=== PATIENT | female | born 1960 | race African-American/Black ===

== ENCOUNTER 2018-01-27 11:11 | Emergency (ER) | payer OTHER ==
[~2018-01-27] VITALS: Ht 154.9 cm; Wt 79.4 kg
== END 2018-01-27 11:50 | disposition home or self-care (01) ==
LOC: FSED 11:11
DX: S00.83XA Contusion of other part of head, initial encounter (principal); W22.8XXA Striking against or struck by other objects, initial encounter; Y99.0 Civilian activity done for income or pay; I10 Essential (primary) hypertension
CPT/HCPCS: 99282

== ENCOUNTER 2019-04-06 11:38 | Emergency (ER) | payer OTHER ==
[~2019-04-06] VITALS: Ht 154.9 cm; Wt 79.4 kg
--- NOTE | 2019-04-06 12:56 | Diagnostic Imaging Report ---
EXAM: SHOULDER 2+VW RT - HOPD DATE: 04/06/2019 12:00 AM INDICATION: Right shoulder pain COMPARISON: None FINDINGS: Although the acromioclavicular joint does not appear widened, there is is minimal elevation of the lateral aspect of the clavicle in comparison to the acromium. The osseous structures are otherwise unremarkable without evidence of acute fracture or dislocation. The glenohumeral joint is within normal limits. The soft tissues are unremarkable without evidence for radiopaque foreign body. The visualized right hemithorax is unremarkable. IMPRESSION: Minimal elevation of the lateral aspect of the clavicle in comparison to the acromium which can be seen in the setting of acromioclavicular injury of unknown chronicity. No other acute osseous abnormality identified within the right shoulder. Signed by: Dr. Mikal Willard MD on 04/06/2019 12:52 PM
[2019-04-06 13:22] VITALS: BP 157/82
--- OUTSIDE RECORDS SUMMARY | 2019-04-15 10:57 | XMS REPORT ---
[facility] Address Unknown Phone Unavailable Care Team Providers Care Food Mixer Name Role Phone SHAHID HEART Unavailable Unavailable Problems This patient has no known problems. Allergies, Adverse Reactions, Alerts This patient has no known allergies or adverse reactions. Medications This patient has no known medications. Results Test Description Test Time Test Comments Text Results Atomic Results Result Comments SHOULDER 2+VW RT - HOPD 2019-04-06 12:48:00 [place] [address] Patient Name: WILMAN MITCHELL MR #: [id number] : 1960 Age/Sex: 59/F Req #: [id number] [facility] Physician: Ordered by: SHAHID HEART MD Report #: [id number] [facility] Room/Bed: Procedure: [id number] HOPD/SHOULDER 2+VW RT - HOPD Exam Date: 04/06/19 Exam Time: 1210 REPORT STATUS: Signed EXAM: SHOULDER 2+VW RT - HOPD DATE: 04/06/2019 12:00 AM INDICATION: Right shoulder pain COMPARISON: None FINDINGS: Although the acromioclavicular joint does not appear widened, there is is minimal elevation of the lateral aspect of the clavicle in comparison to the acromium. The osseous structures are otherwise unremarkable without evidence of acute fracture or dislocation. The glenohumeral joint is within normal limits. The soft tissues are unremarkable without evidence for radiopaque foreign body. The visualized right hemithorax is unremarkable. IMPRESSION: Minimal elevation of the lateral aspect of the clavicle in comparison to the acromium which can be seen in the setting of acromioclavicular injury of unknown chronicity. No other acute osseous abnormality identified within the right shoulder. Signed by: Dr. Mikal Busby MD on 04/06/2019 12:52 PM Dictated By: MIKAL BUSBY MD [id number] Transcribed By: CONSUELO on 04/06/19 125 COPY TO: SHAHID HEART MD
== END 2019-04-06 13:34 | disposition home or self-care (01) ==
LOC: FSED 11:38
DX: S43.51XA Sprain of right acromioclavicular joint, initial encounter (principal); X50.0XXA Overexertion from strenuous movement or load, initial encounter; Y99.0 Civilian activity done for income or pay
CPT/HCPCS: 99283